=== PATIENT | female | born 1955 | race Hispanic/Latino ===

== ENCOUNTER 2017-10-01 10:29 | Emergency (ER) | payer OTHER ==
[~2017-10-01] VITALS: Ht 154.9 cm; Wt 71.2 kg
--- NOTE | 2017-10-01 11:35 | ED SKIN/ALLERGY COMPLAINT ---
History of Present Illness General Chief Complaint: Major Burn/Smoke Inhalation Stated Complaint: BURNED HAND Source: patient Exam Limitations: no limitations Vital Signs & Intake/Output Vital Signs & Intake/Output Vital Signs Date Time Temp Pulse Resp B/P B/P Pulse O2 O2 Flow FiO2 Mean Ox Delivery Rate 10/01 1250 97.0 98 17 158/64 99 Room Air 10/01 1127 Room Air 10/01 1036 97.1 112 20 117/71 97 Room Air Allergies Coded Allergies: No Known Allergies (10/01/17) Reconcile Medications Oxycodone HCl/Acetaminophen (Percocet 5-325 MG Tablet) 5 MG-325 MG TABLET 1 TAB PO BID PRN PAIN Silver Sulfadiazine (Silvadene) 1 % CREAM..G. 1 WELL[place] TOP DAILY BURN apply to affected area(s) Triage Note: PT WAS PUTTING CHICKEN IN HOT OIL WHEN IT BUBBLED UP ONTO HER RIGHT FINGERS AND LEFT WRIST Triage Nurses Notes Reviewed? yes Onset: Abrupt Duration: getting worse Timing: yesterday Severity: moderate Location: right fingers, left wrist HPI: 62yo female presents to the ED complaining of burn to right fingers and left wrist. Patient states that last night around 6:30 PM she was cooking chicken and hot oil and a hot piece of chicken landed on her hands causing duncan. Patient dressed wounds with bacitracin Zinc ointment last night before going to bed. Today there is been increased swelling and blistering so she came here to the emergency department. Patient is unsure for her last tetanus vaccine was. She denies numbness, tingling, bleeding. (Janice Miller) Past History Travel History Traveled to [place] past 21 day No Medical History Any Pertinent Medical History? see below for history Cardiovascular: hypertension Gastrointestinal: GERD Surgical History Surgical History: non-contributory Psychosocial History What is your primary language Telugu Tobacco Use: Never used ETOH Use: denies use Illicit Drug Use: denies illicit drug use Family History Hx Contributory? No (Janice Miller) Review of Systems Review of Systems Constitutional: Reports: no symptoms. EENTM: Reports: no symptoms. Respiratory: Reports: no symptoms. Cardiovascular: Reports: no symptoms. GI: Reports: no symptoms. Genitourinary: Reports: no symptoms. Musculoskeletal: Reports: no symptoms. Skin: Reports: see HPI. Neurological/Psychological: Reports: no symptoms. Hematologic/Endocrine: Reports: no symptoms. Immunologic/Allergic: Reports: no symptoms. All Other Systems: Reviewed and Negative (Janice Miller) Physical Exam Physical Exam General Appearance: well developed/nourished, no apparent distress, alert, awake Head: atraumatic, normal appearance Eyes: Bilateral: normal appearance. Ears, Nose, Throat: hearing grossly normal Neck: normal inspection, supple, full range of motion Respiratory: no respiratory distress Cardiovascular: normal peripheral pulses Peripheral Pulses: 2+ radial (R), 2+ radial (L) Back: normal inspection, normal range of motion Extremities: 2nd degree duncan to dorsal 2nd-4th digits on right hand with tenderness 2nd degree burn to dorsal left wrist, mild tenderness Neurologic/Psych: awake, alert, oriented x 3 Skin: duncan to extremities as described above (Janice Miller) Progress Differential Diagnosis: abscess/cellulitis, contact dermatitis, 1st degree burn, 2nd degree burn Plan of Care: Current Medications Sig/Gege Start time Last Medication Dose Stop Time Status Admin Tetanus/Diphtheria 0.5 ML ONCE ONE 10/01 1200 AC Toxoids Adsorbed 10/01 1201 (Decavac) Spoke with [facility] regarding this patient. Burn clinic is not open on the weekend and they cannot follow the patient until Wednesday however they agree patient does not need to be seen today emergently regarding her second degree duncan. They recommend wound dressing and follow-up on Wednesday. When stressed with bacitracin and patient was prescribed silver sulfadiazine cream. I recommended that the patient follow up with me tomorrow for reevaluation of her duncan. The patient agrees with the plan of care. Dr. Hernandez present to see and evaluate patient. He agrees With the plan of care. (Janice Miller) Departure Departure Disposition: HOME OR SELF CARE Condition: Stable Clinical Impression Primary Impression: Second degree burn of hand and fingers Qualifiers: Encounter type: initial encounter Laterality: unspecified laterality Qualified Codes: T23.209A - Burn of second degree of unspecified hand , unspecified site, initial encounter; T23.239A - Burn of second degree of unspecified multiple fingers (nail), not including thumb, initial encounter Referrals: Patient Has No Primary Care Dr (PCP/Family) Additional Instructions: Please return tomorrow for reevaluation of your duncan. Your prescribed a cream to apply to your duncan topically. The number for the burn center Is listed below however they're not open until Wednesday and we would like to return tomorrow so that we can reassess your duncan. Burn Center: [phone] Departure Forms: Customer Survey General Discharge Information Prescriptions: Current Visit Scripts Silver Sulfadiazine (Silvadene) 1 [place] TOP DAILY #50 GM apply to affected area(s) Oxycodone HCl/Acetaminophen (Percocet 5-325 MG Tablet) 1 TAB PO BID PRN PAIN #10 TAB (Ivanna JEFFERY,Janice Langston) PA/CRM DEVELOPER Co-Sign Statement Statement: ED Attending supervision documentation- [X] I saw and evaluated the patient. I have also reviewed all the pertinent lab results and diagnostic results. I agree with the findings and the plan of care as documented in the PA's/CRM DEVELOPER's documentation. [] I have reviewed the ED Record and agree with the PA's/CRM DEVELOPER's documentation. [] Additions or exceptions (if any) to the PAs/CRM DEVELOPER's note and plan are summarized below: [] (Mauricio Hernandez DO
[2017-10-01] MEDS ORDERED: PERCOCET 5-3251 EACH PO (12:34)
[2017-10-01] MEDS ORDERED: SILVADENE20 GM TOP (12:34)
[2017-10-01 12:50] VITALS: BP 158/64
== END 2017-10-01 12:57 ==
LOC: ERH 10:29
DX: T23.231A Burn of second degree of multiple right fingers (nail), not including thumb, initial encounter (principal); T23.272A Burn of second degree of left wrist, initial encounter; X10.2XXA Contact with fats and cooking oils, initial encounter; Y93.G3 Activity, cooking and baking; Y92.9 Unspecified place or not applicable
CPT/HCPCS: 90471; 90714